=== PATIENT | female | born 1935 | race Caucasian/White ===

== ENCOUNTER 2018-07-22 16:02 | Inpatient (IN) | payer MEDICARE, OTHER ==
[~2018-07-22] VITALS: Ht 160 cm; Wt 46.7 kg
--- NOTE | 2018-07-22 16:15 | NUR ---
Patient brought in by keno attendant, pt. restless, agitated, attempting to get out bed, and almost falling. pt. assisted back to bed. foundry patternmaker. notified of the need to have a sitter at bedside.
[2018-07-22] MEDS ORDERED: QUET25TA3 (16:16)
[2018-07-22] MEDS ORDERED: CLON0.5T PO (16:16)
[2018-07-22] MEDS ORDERED: ARICEPT (16:16)
[2018-07-22] MEDS ORDERED: LORA2VIA33 IM (16:16)
--- NOTE | 2018-07-22 16:20 | NUR ---
Patient seen and examine by Dr. Perera.
--- NOTE | 2018-07-22 17:14 | NUR ---
learning and development intern called Spencer for Psych eval and and eta. of 1 hour received.
--- NOTE | 2018-07-22 17:30 | NUR ---
Sitter at bedside.
--- NOTE | 2018-07-22 18:30 | NUR ---
Pinky Via in to evaluate pt.
--- NOTE | 2018-07-22 18:53 | NUR ---
pt. place on 5830 hold by Bev via an a call to Toma samaniego R.N. [facility] bed 145-A assigned.
--- NOTE | 2018-07-22 19:05 | NUR ---
Report given to incoming rn. Teresa. she will continue with care plan. Pending admission endorse.
--- NOTE | 2018-07-22 19:11 | NUR ---
REPORT TAKEN FROM DAY SHIFT RN. ASSUMING CARE AT THIS TIME.
--- NOTE | 2018-07-22 19:42 | NUR ---
REPORT GIVEN TO ABIEL ADLER.
--- NOTE | 2018-07-22 20:07 | NUR ---
Pt. admitted to MHU, under care of Dr. CABRERA Belongs List completed
[2018-07-22] MEDS ORDERED: MAG HYDROX/AL HYDROX/SIMETH 30 ML LIQUID UDC PO PRN (20:30)
[2018-07-22] MEDS ORDERED: ACETAMINOPHEN 325 MG TABLET PO PRN (20:30)
[2018-07-22] MEDS ORDERED: MAGNESIUM HYDROXIDE 30 ML LIQUID UDC PO PRN (20:30)
[2018-07-22] MEDS ORDERED: TEMAZEPAM 7.5 MG CAPSULE PO PRN (20:30)
--- NOTE | 2018-07-22 20:45 | NUR ---
ADMITTED 82 YEARS OLD FEMALE TO MHU ON A 5150 FOR GD. PATIENT WAS INITIALLY TAKEN BY POLICE TO [facility] D/T PATIENT WONDERING AWAY FORM HOME, DISORGANIZED, DISORIENTED, UNABLE TO PROVIDED ACCURATE HISTORY. PATIENT WAS MEDICALLY CLEARED AT [facility] AND WAS BROUGHT IN BY AMBULANCE TO [facility]. HOLD STARTED ON 07/22/18 AT 1819 AND WILL END ON 07/25/18 AT 181. UPON ADMISSION, PATIENT NOTED RESTLESS, ANXIOUS, EASILY IRRITABLE, COMBATIVE AT TIMES. PATIENT UNABLE TO PROVIDE ANY HISTORY, SHE IS NOTED A/O X 1 CONFUSED, DISORGANIZED. GAIT UNSTEADY AT THIS TIME. PATIENT WILL BE UNDER THE CARE OF DR. CABRERA. WILL CONTINUE TO MONITOR.
[2018-07-22 21:01] VITALS: BP 130/71
[2018-07-22] MEDS: CLONAZEPAM 0.5 MG TABLET PO PRN (21:39)
--- NOTE | 2018-07-22 23:30 | NUR ---
AT APPROX 2139, PATIENT WAS GIVE KLONOPIN 0.5MG PO PRN FOR ANXIETY AGITATION; HOWEVER, INEFFECTIVE. PATIENT CONTINUE AGITATED, RESTLESS. TEMAZEPAM 7.5 MG PO PRN WAS GIVEN FOR INSOMNIA. WILL CONTINUE TO MONITOR.
[2018-07-23] MEDS: CLONAZEPAM 0.5 MG TABLET PO PRN (04:57)
[2018-07-23] MEDS ORDERED: LEVO25TA9 PO (05:45)
[2018-07-23] MEDS ORDERED: SIMV40TA5 PO (05:45)
[2018-07-23 07:30] VITALS: BP 162/75
--- NOTE | 2018-07-23 15:26 | NUR ---
Gps/Cytogenetic Technician- Remains up on her edmundo-chair, drowsy, arousable, in no distress.
[2018-07-23 15:28] VITALS: BP 161/94
[2018-07-23] MEDS: SIMVASTATIN 40 MG TABLET PO SCH (17:38)
--- NOTE | 2018-07-23 17:58 | NUR ---
Gps/Medicaid Service Coordinator- Offered dinner tray, tried to feed patient , refused , spits out food. Safety continue to emphasized,unsteady gait.Abdomen not distended , poor fluids intake. Sitter instructed to continue offering liquids of choice.
[2018-07-23] MEDS: QUETIAPINE FUMARATE 25 MG TABLET PO SCH (21:00)
[2018-07-23] MEDS: DONEPEZIL 5 MG TABLET PO SCH (21:00)
[2018-07-23 21:23] VITALS: BP 120/69
--- NOTE | 2018-07-23 23:20 | NUR ---
RECEIVED RESIDENT IN A INGA CHAIR WITH 1;1 SITTER FOR SAFETY.SHE APPEARED CONFUSED, IRRITABLE AND WAS LATER COMBATIVE WHEN ATTEMPTS WAS MADE TO GIVE HER ORAL MEDS. SHE LATER SPAT OUT ALL THE MEDS GIVEN.ON SCHEDULED ROUNDS SHE WAS NOT IN ACUTE DISTRESS NOR DID FACIAL GRIMACE DENOTE PAIN.LATER PUT IN BED AND GENTLY REPOSITIONED.WILL CONTINUE TO MONITOR CLOSELY.
--- NOTE | 2018-07-24 06:50 | NUR ---
SHE SLEPT INTERMITTENTLY FOR APPROX.7HRS. REPOSITIONED Q 2HRLY. WILL CONTINUE TO MONITOR.
[2018-07-24 07:30] VITALS: BP 109/57
[2018-07-24] MEDS: CLONAZEPAM 0.5 MG TABLET PO PRN (09:31)
[2018-07-24] MEDS: LEVOTHYROXINE SODIUM 25 MCG TABLET PO SCH (09:31)
--- NOTE | 2018-07-24 09:45 | NUR ---
Gps/Front Of House Manager- Patient was restless, fidgety, pushing tray. trying to spit out pudding being offered.Sitter was well instructed to continue to reoffer fluids, foods. Pressure relief, keeping skin dry and clean.
--- NOTE | 2018-07-24 15:55 | NUR ---
Gps/Putty Maker- No Urge to void, fluids offered. BVI 505 ml (bladder scanner)Will continue to monitor bladder.
[2018-07-24 16:26] VITALS: BP 172/88
[2018-07-24] MEDS: SIMVASTATIN 40 MG TABLET PO SCH (18:00)
--- NOTE | 2018-07-24 18:30 | NUR ---
Gps/Tack Cutter- Toilted with min. assist. voided large amount also noted patient was incontinent of urine in her diaper, good annie-care rendred.Poor dinner intake, fluids offered.
[2018-07-24 20:00] VITALS: BP 172/117
[2018-07-24] MEDS: QUETIAPINE FUMARATE 25 MG TABLET PO SCH (20:36)
[2018-07-24] MEDS: DONEPEZIL 5 MG TABLET PO SCH (20:36)
[2018-07-24] MEDS: hydrALAZINE HCL 10 MG TABLET PO PRN (20:38)
[2018-07-24] MEDS ORDERED: Z GUARD REMEDY PASTE 57 GM TUBE TOP PRN (20:45)
--- NOTE | 2018-07-24 23:09 | NUR ---
RECEIVED RESIDENT IN A INGA CHAIR WITH 1;1 SITTER FOR SAFETY.SHE APPEARED CONFUSED AND IRRITABLE AND MAKING ATTEMPTS TO GET OUT OF THE CHAIR.SEVERAL ATTEMPTS WAS MADE TO GIVE HER ORAL MEDS WHICH SHE LATER TOOK. ON SCHEDULED ROUNDS SHE WAS NOT IN ACUTE DISTRESS NOR DID FACIAL GRIMACE DENOTE PAIN.LATER PUT IN BED AND GENTLY REPOSITIONED.WILL CONTINUE TO MONITOR CLOSELY.
--- NOTE | 2018-07-25 06:44 | NUR ---
SHE HAD A DIFFICULT TIME FALLING ASLEEP BUT AFTER A WHILE SHE SLEPT WELL FOR 7;30HRS. HER BLOOD PRESSURE CHECK THIS HANK WAS 156/79.P.77. EARLIER ON AT NIGHT TAB HYDRALAZINE WAS GIVEN FOR B/P 172/117MMGH. UP IN INGA CHAIR AFTER A SHOWER
[2018-07-25] MEDS: LEVOTHYROXINE SODIUM 25 MCG TABLET PO SCH (06:57)
[2018-07-25 07:30] VITALS: BP 114/84
[2018-07-25 16:02] VITALS: BP 112/68
[2018-07-25] MEDS: CLONAZEPAM 0.5 MG TABLET PO PRN (17:48)
[2018-07-25] MEDS: SIMVASTATIN 40 MG TABLET PO SCH (17:48)
[2018-07-25] MEDS: DONEPEZIL 5 MG TABLET PO SCH (20:18)
[2018-07-25] MEDS: QUETIAPINE FUMARATE 25 MG TABLET PO SCH (20:18)
[2018-07-25 20:30] VITALS: BP 157/112
[2018-07-26] MEDS: LEVOTHYROXINE SODIUM 25 MCG TABLET PO SCH (06:09)
--- NOTE | 2018-07-26 06:44 | NUR ---
GPS/NEWS AGENT: REMAIN CALM NAD COOPERATIVE WITH MEDICATIONS AND CARE.ASSISTED WITH ADL'S. CONTINUE ON 1:1 SITTER @ BEDSIDE FOR SAFETY. SLEPT 8 HRS THROUGH THE NIGHT.CONTINUE MONITORING FOR SAFETY.
[2018-07-26 07:30] VITALS: BP 108/80
--- NOTE | 2018-07-26 14:49 | NUR ---
Firearms Report: flare worker completed and submitted [employer] Firearms Report on 07/26/18 for 5250 GD certification.
[2018-07-26 16:00] VITALS: BP 164/92
[2018-07-26] MEDS: CLONAZEPAM 0.5 MG TABLET PO PRN ×2 (16:42→16:43)
[2018-07-26] MEDS: SIMVASTATIN 40 MG TABLET PO SCH (17:18)
--- NOTE | 2018-07-26 18:20 | NUR ---
Pt is very disoriented and confused, pt states that she lives with her "mother and sister", pt expressed strongly that she wants to "go home". Pt on 1:1 sitter for safety.
[2018-07-26 19:30] VITALS: BP 152/72
--- NOTE | 2018-07-26 19:50 | NUR ---
RECEIVED PATIENT IN THE DAY ROOM SITTING IN A INGA CHAIR. SHE CONTINUE ON 1:1 SUPERVISION FOR SAFETY. SHE IS NOTED AWAKE A/O X 1. CALM AT THIS TIME. CONFUSED, POOR HISTORIAN LABILE BX, LOW MOOD FLAT AFFECT. HOWEVER, NO AGGRESSIVE/COMBATIVE BX NOTED AT THIS TIME. SAFETY WAS EMPHASIS. WILL CONTINUE TO MONITOR CLOSELY.
[2018-07-26] MEDS: QUETIAPINE FUMARATE 25 MG TABLET PO SCH (20:23)
[2018-07-26] MEDS: DONEPEZIL 5 MG TABLET PO SCH (20:23)
[2018-07-27] MEDS: CLONAZEPAM 0.5 MG TABLET PO PRN (04:52)
[2018-07-27 07:26] LABS: BASOPHILS # (AUTO) 0.1 K/uL (0.0-8.0); BASOPHILS % (AUTO) 1.4 % (0.0-2.0); EOSINOPHILS # (AUTO) 0.1 K/uL (0.0-0.7); EOSINOPHILS % (AUTO) 1.6 % (0.0-7.0); HEMATOCRIT 42.7 % (31.2-41.9); HEMOGLOBIN 14.4 g/dL (10.9-14.3); LYMPHOCYTES # (AUTO) 0.9 K/uL (20.0-40.0); MEAN CORPUSCULAR HEMOGLOBIN 31.8 uug (24.7-32.8); MEAN CORPUSCULAR HGB CONC 34 g/dL (32.3-35.6); MEAN CORPUSCULAR VOLUME 94.3 fL (75.5-95.3); MONOCYTES # (AUTO) 0.7 K/uL (2.0-10.0); PLATELET COUNT (AUTO) 207 K/uL (179-408); RED BLOOD CELL COUNT(AUTO) 4.53 MIL/uL (3.63-4.92); WHITE BLOOD COUNT (AUTO) 4.8 K/uL (3.8-11.8)
[2018-07-27 07:30] VITALS: BP 124/76
[2018-07-27 07:58] LABS: ALANINE AMINOTRANSFERASE 25 U/L (14-59); ALKALINE PHOSPHATASE 66 U/L (50-136); ASPARTATE AMINOTRANSFERASE 23 U/L (15-37); BILIRUBIN,TOTAL 0.8 mg/dL (0.2-1.0); CARBON DIOXIDE 26 mmol/L (21-32); CHLORIDE 109 mmol/L (98-107); GLUCOSE 103 mg/dL (74-106); MAGNESIUM 2.1 mg/dL (1.8-2.4); PHOSPHOROUS 3.2 mg/dL (2.5-4.9); POTASSIUM 3.7 mmol/L (3.5-5.1); TOTAL PROTEIN, SERUM 6.5 g/dL (6.4-8.2); UREA NITROGEN, BLOOD 23 mg/dL (7-18)
[2018-07-27] MEDS: LEVOTHYROXINE SODIUM 25 MCG TABLET PO SCH (08:37)
[2018-07-27 09:39] LABS: *BLOOD, URINE Trace-lysed (NEGATIVE); *CLARITY,URINE CLOUDY (CLEAR); *COLOR,URINE YELLOW (YELLOW); *KETONES,URINE NEGATIVE (NEGATIVE); *PROTEIN,URINE 1+ (NEGATIVE); LEUKOCYTE ESTERASE ,URINE 1+ (NEGATIVE); NITRITE, URINE NEGATIVE (NEGATIVE); UGLUCOSE NEGATIVE (NEGATIVE)
[2018-07-27 09:55] LABS: *BILIRUBIN,URIN 1+ (NEGATIVE)
[2018-07-27 09:57] LABS: WBC,URINE 20-50 /HPF (0-3)
[2018-07-27 09:58] LABS: BACTERIA,URINE NONE SEEN /HPF (NONE SEEN); CALCIUM OXALATE CRYSTALS,UR MODERATE /HPF (NONE SEEN); SQUAMOUS EPITHELIAL CELL,UR MODERATE /HPF (NONE SEEN)
[2018-07-27 10:17] LABS: THYROID STIMULATING HORMONE 3.485 mIU/mL (0.358-3.740)
[2018-07-27 11:39] LABS: LYMPHOCYTES % (MANUAL) 19 % (20-40); MONOCYTES % (MANUAL) 15 % (2-10); NEUTROPHILS % (MANUAL) 63 % (42-75)
[2018-07-27 11:40] LABS: EOSINOPHILS % (MANUAL) 3 % (0-8)
[2018-07-27] MEDS: SULFAMETH/TRIMETH 800/160 MG TABLET PO SCH ×2 (12:21→20:58)
--- NOTE | 2018-07-27 12:50 | NUR ---
Discharge Planning Note: ORALIA faxed SNF inquiries to the following facilities: [facility] Attn: [facility] Attn: [facility] Attn: Ronna
[2018-07-27 16:23] VITALS: BP 148/74
[2018-07-27] MEDS: SIMVASTATIN 40 MG TABLET PO SCH (17:02)
--- NOTE | 2018-07-27 19:50 | NUR ---
RECEIVED PATIENT IN HER ROOM, SITTING IN A INGA CHAIR. SHE IS NOTED A/O X 1, CONFUSED, DISORGANIZED, DISORIENTED. LESS IRRITABLE, LABILE BX BLUNTED AFFECT. SHE CONTINUE ON 1:1 SUPERVISION FOR FALL PRECAUTION. SAFETY EMPHASIS, WILL CONTINUE TO MONITOR.
[2018-07-27 20:47] VITALS: BP 135/112
[2018-07-27] MEDS: DONEPEZIL 5 MG TABLET PO SCH (20:58)
[2018-07-27] MEDS: QUETIAPINE FUMARATE 25 MG TABLET PO SCH (20:58)
[2018-07-27] MEDS: hydrALAZINE HCL 10 MG TABLET PO PRN (20:58)
--- NOTE | 2018-07-27 21:00 | NUR ---
PATIENT'S BLOOD PRESSURE WAS RECHECKED B/P 179/98MMHG AND 71 BPM. APRESOLINE 10MG PO PRN WAS GIVEN FOR SBP>160MMHG. PATIENT IN NO DISTRESS. WILL CONTINUE TO MONITOR.
--- NOTE | 2018-07-27 22:43 | NUR ---
BLOOD PRESSURE WAS RE-ASSESSED. IS NOW B/P 135/98MMHG AND 57 BPM. PATIENT RESTING IN HER BED CONTINUE ON 1:1 SUPERVISION FOR FALL PRECAUTION.
[2018-07-28] MEDS: CLONAZEPAM 0.5 MG TABLET PO PRN (02:06)
--- NOTE | 2018-07-28 07:31 | NUR ---
PATIENT SLEPT FOR APPROX 3.30 HRS THROUGH THE NIGHT. CONTINUE COMPLIANT WITH MEDICATION REGIMENT. CONTINUE ON 1:1 SUPERVISION
[2018-07-28] MEDS: LEVOTHYROXINE SODIUM 25 MCG TABLET PO SCH (07:57)
[2018-07-28] MEDS: SULFAMETH/TRIMETH 800/160 MG TABLET PO SCH ×2 (08:15→20:54)
[2018-07-28 08:30] VITALS: BP 118/66
[2018-07-28] MEDS ORDERED: QUETIAPINE FUMARATE 25 MG TABLET PO PRN (14:00)
--- NOTE | 2018-07-28 14:44 | NUR ---
DC Planning Note: ORALIA spoke with patient's sister, Karlene ([phone]) about discharge planning. Per sister, she is willing to have patient placed in a SNF in the [place]. Per Karlene, she spoke with Toña at [facility] ([id number] [place] [address]; ). Karlene would like the patient to go there when ready for discharge. ORALIA spoke with Toña at [facility] who reports they will hold a bed for the patient until she is ready for discharge. ORALIA faxed update notes (f. [phone]). Patient was accepted. ORALIA will continue to follow-up with facility and family in regards to DC planning.
[2018-07-28] MEDS ORDERED: MUPIROCIN 2% OINT 22 GM TUBE NS SCH (15:00)
[2018-07-28] MEDS: SIMVASTATIN 40 MG TABLET PO SCH (18:07)
[2018-07-28 20:53] VITALS: BP 152/79
[2018-07-28] MEDS: QUETIAPINE FUMARATE 25 MG TABLET PO SCH (20:53)
[2018-07-28] MEDS: DONEPEZIL 5 MG TABLET PO SCH (20:54)
--- NOTE | 2018-07-29 05:13 | NUR ---
aaox1 confused and disoriented. on a 1:1 sitter. tolerated po meds well. no acute distress noted. calm and pleasant. no signs of agitation or restlessness. will monitor patient.
[2018-07-29] MEDS: LEVOTHYROXINE SODIUM 25 MCG TABLET PO SCH (06:26)
[2018-07-29] MEDS: SULFAMETH/TRIMETH 800/160 MG TABLET PO SCH ×2 (08:38→20:59)
[2018-07-29] MEDS: CHOLECALCIFEROL 1,000 UNIT TABLET PO SCH (08:38)
[2018-07-29] MEDS: CLONAZEPAM 0.5 MG TABLET PO PRN (11:50)
[2018-07-29 16:00] VITALS: BP 119/98
[2018-07-29] MEDS: SIMVASTATIN 40 MG TABLET PO SCH (17:00)
[2018-07-29 19:30] VITALS: BP 134/52
[2018-07-29] MEDS: QUETIAPINE FUMARATE 25 MG TABLET PO SCH (21:00)
[2018-07-29] MEDS: DONEPEZIL 5 MG TABLET PO SCH (21:00)
--- NOTE | 2018-07-29 22:00 | NUR ---
Awake & alert pleasantly confused, no SOB noted. 1:1 sitter at bedside. Routine night meds given, patient tolerated crushed pills with pudding. Vital digns WNL.
[2018-07-30] MEDS: LEVOTHYROXINE SODIUM 25 MCG TABLET PO SCH (06:08)
--- NOTE | 2018-07-30 07:18 | NUR ---
No significant change, 1:1 sitter in room for patient's safety.
[2018-07-30 07:30] VITALS: BP 124/74
[2018-07-30] MEDS: CHOLECALCIFEROL 1,000 UNIT TABLET PO SCH (08:16)
[2018-07-30] MEDS: SULFAMETH/TRIMETH 800/160 MG TABLET PO SCH ×2 (08:16→20:21)
[2018-07-30 09:41] VITALS: BP 124/74
[2018-07-30] MEDS: CLONAZEPAM 0.5 MG TABLET PO PRN ×2 (11:33→16:41)
[2018-07-30 15:15] VITALS: BP 95/77
[2018-07-30] MEDS: SIMVASTATIN 40 MG TABLET PO SCH (17:00)
[2018-07-30] MEDS: DONEPEZIL 5 MG TABLET PO SCH (20:20)
[2018-07-30] MEDS: QUETIAPINE FUMARATE 25 MG TABLET PO SCH (20:21)
[2018-07-30 20:48] VITALS: BP 136/59
[2018-07-31] MEDS: LEVOTHYROXINE SODIUM 25 MCG TABLET PO SCH (06:26)
--- NOTE | 2018-07-31 06:58 | NUR ---
GPS: REMAIN CONFUSED AND DISORIENTED. CONTINUE ON 1:1 SITTER @ BEDSIDE FOR SAFETY. SLEPT 5:30 HRS THROUGH THE NIGHT. ASSISTED WITH ADL'S. NO AGGRESSIVE BEHAVIOR NOTED AT THIS TIME.
[2018-07-31 07:30] VITALS: BP 133/79
[2018-07-31] MEDS: CHOLECALCIFEROL 1,000 UNIT TABLET PO SCH (08:49)
[2018-07-31] MEDS: SULFAMETH/TRIMETH 800/160 MG TABLET PO SCH ×2 (08:49→20:19)
[2018-07-31] MEDS: CLONAZEPAM 0.5 MG TABLET PO PRN (08:51)
[2018-07-31 16:35] VITALS: BP 114/71
[2018-07-31] MEDS: SIMVASTATIN 40 MG TABLET PO SCH (17:12)
[2018-07-31] MEDS: DONEPEZIL 5 MG TABLET PO SCH (20:19)
[2018-07-31] MEDS: QUETIAPINE FUMARATE 25 MG TABLET PO SCH (20:19)
[2018-08-01] MEDS: LEVOTHYROXINE SODIUM 25 MCG TABLET PO SCH (06:10)
--- NOTE | 2018-08-01 06:43 | NUR ---
PATIENT ASLEEP IN BED. EASILY AROUSABLE. SLEPT WELL. SLEPT A TOTAL OF 7 HOURS AND 45 MINUTES. SITTER AT BEDSIDE FOR SAFETY. ALL NEEDS ATTENDED.
[2018-08-01 07:30] VITALS: BP 114/66
[2018-08-01] MEDS: CHOLECALCIFEROL 1,000 UNIT TABLET PO SCH (08:26)
[2018-08-01] MEDS: SULFAMETH/TRIMETH 800/160 MG TABLET PO SCH (08:26)
--- NOTE | 2018-08-01 09:49 | NUR ---
DC Note: Patient will be discharged to [facility] [[address] [place] [address]; ] via ambulance. Please arrange an ambulance for this patient. Spoke with Nhi at the facility who states they are ready to accept the patient today. Spoke with patients sister, Karlene Jimenez ([phone]) who is aware and agreeable with discharge plans. Patient is alert and oriented x1 and is cooperative. Patient will follow-up at the facility with Dr. Russell (Cooper Apprentice) and Dr. White (Psychiatrist).
[2018-08-01] MEDS: QUETIAPINE FUMARATE 25 MG TABLET PO SCH ×2 (10:16→12:16)
--- NOTE | 2018-08-01 15:18 | NUR ---
Patient will be discharged to [facility] via ambulance. Please arrange an ambulance for this patient. Patient is alert and oriented x1 and is cooperative. Patient will follow-up at the facility with Dr. Russell (Donations Attendant) and Dr. White (Psychiatrist).all personal belonging taken by pt VSS.
--- NOTE | 2018-08-01 15:28 | NUR ---
patient is agitated and confused refused for all discharge picture taken .
[2018-08-01 15:47] VITALS: BP 115/98
== END 2018-08-01 16:00 | DRG 885 ==
LOC: ER 16:05 → GPS 19:52
PROVIDERS: ADMIT Psychiatry & Neurology Psychosomatic Medicine; ATTEND Hospitalist
DX: F29 Unspecified psychosis not due to a substance or known physiological condition (principal); N17.0 Acute kidney failure with tubular necrosis; R45.851 Suicidal ideations; E46 Unspecified protein-calorie malnutrition; F03.91 Unspecified dementia, unspecified severity, with behavioral disturbance; Z68.1 Body mass index [BMI] 19.9 or less, adult; N39.0 Urinary tract infection, site not specified; E44.1 Mild protein-calorie malnutrition; M85.80 Other specified disorders of bone density and structure, unspecified site; E03.9 Hypothyroidism, unspecified; E55.9 Vitamin D deficiency, unspecified; E78.5 Hyperlipidemia, unspecified; F32.9 Major depressive disorder, single episode, unspecified; I10 Essential (primary) hypertension; K21.9 Gastro-esophageal reflux disease without esophagitis; Z91.14 Patient's other noncompliance with medication regimen; B35.1 Tinea unguium; Z73.6 Limitation of activities due to disability; R23.4 Changes in skin texture; R32 Unspecified urinary incontinence
CPT/HCPCS: 36415; 82306; 83735; 84100; 84443; 85025; 87086; 93005; 97110; 97116; 97530; A4663